=== PATIENT | male | born 1935 | race Native Hawaiian/Other Pacific Islander ===

== ENCOUNTER 2017-03-06 16:25 | Emergency (ER) | payer MEDICARE, OTHER ==
[~2017-03-06] VITALS: Ht 167.6 cm; Wt 63.5 kg
--- NOTE | 2017-03-06 17:10 | NUR ---
PT WASHED HE ABRASION ON BOTH ARM WITH SOAP AND RUNNING WATER, TIPLE ANTIBIOTIC PLACED PER MD ORDER.
--- NOTE | 2017-03-06 17:25 | NUR ---
Patient discharged to home in stable conditon. Written and verbal after care instructions given. Patient verbalizes understanding of instructions.PT WALKS IN STEADY GAIT,ACCOMPANIED BY FAMILY MEMBER.
[2017-03-06 17:27] VITALS: BP 141/77
[2017-03-06] MEDS ORDERED: NEOMY/BACITRA/POLYMYXIN B OINT UD PACKET TP ONE ×2 (17:29→17:30)
== END 2017-03-06 17:34 | disposition home or self-care (01) ==
LOC: ER 16:34
DX: S60.512A Abrasion of left hand, initial encounter (principal); S60.511A Abrasion of right hand, initial encounter; E78.00 Pure hypercholesterolemia, unspecified; R51 Headache; V89.2XXA Person injured in unspecified motor-vehicle accident, traffic, initial encounter; Y93.89 Activity, other specified; Y99.8 Other external cause status; Y92.89 Other specified places as the place of occurrence of the external cause
CPT/HCPCS: 70450; A4663